=== PATIENT | male | born 1970 | race Caucasian/White ===

== ENCOUNTER 2017-05-06 11:29 | Inpatient (IN) | payer OTHER ==
[~2017-05-06] VITALS: Ht 180.3 cm; Wt 102.1 kg
[2017-05-06] MEDS ORDERED: SODIUM CHLORIDE 0.9% 1000ML 1,000 ML IV STA (11:55)
[2017-05-06] MEDS ORDERED: HYDROMORPHONE 1MG/1ML INJ IV STA (11:55)
[2017-05-06] MEDS ORDERED: ONDANSETRON HCL INJ 2 MG/ML VIAL IV STA (11:55)
[2017-05-06] MEDS ORDERED: DIATRIZOATE MEGL/DIATRIZOA SOD 30 ML BTL PO ONE (12:05)
[2017-05-06 12:39] LABS: BASOPHILS % 0.2 % (0.0-1.0); EOSINOPHILS % 0.3 % (0.0-6.0); HEMATOCRIT 46.6 % (38.2-49.6); HEMOGLOBIN 16.2 g/dL (14.0-18.0); LYMPHOCYTES % 7.5 % (18.0-39.1); MEAN CORPUSCULAR HEMOGLOBIN 32.1 pg (28-32); MEAN CORPUSCULAR HGB CONC 34.8 g/dL (31-35); MEAN CORPUSCULAR VOLUME 92.5 fL (81-99); MONOCYTES % 7.9 % (4.4-11.3); NEUTROPHILS # (AUTO) 10.7 (2.1-6.9); NEUTROPHILS % 83.9 % (38.7-80.0); PLATELET COUNT 166 x10e3/uL (140-360); RED BLOOD COUNT 5.04 x10e6/uL (4.3-5.7); RED CELL DISTRIBUTION WIDTH 12.2 % (11.7-14.4)
[2017-05-06] MEDS ORDERED: HYDROMORPHONE 2MG/ML INJ IV ONE (12:45)
[2017-05-06 12:58] LABS: ALANINE AMINOTRANSFERASE 47 IU/L (0-55); ALBUMIN 4.2 g/dL (3.5-5.0); ALKALINE PHOSPHATASE 83 IU/L (40-150); AMYLASE 34 U/L (25-125); ANION GAP 10.8 mmol/L (8-16); BLOOD UREA NITROGEN 14 mg/dL (7-26); BUN/CREATININE RATIO 12 (6-25); CALCIUM 9.6 mg/dL (8.4-10.2); CARBON DIOXIDE 27 mmol/L (22-29); CHLORIDE 97 mmol/L (98-107); CREATININE, SERUM 1.13 mg/dL (0.72-1.25); EST GLOMERULAR FILTRATION RATE > 60 ML/MIN (60-); GLUCOSE 97 mg/dL (74-118); LIPASE 14 U/L (8-78); POTASSIUM 3.8 mmol/L (3.5-5.1); SODIUM 131 mmol/L (136-145)
[2017-05-06] MEDS ORDERED: METRONIDAZOLE 500MG/NS 100ML 100 ML IV STA (13:19)
[2017-05-06] MEDS ORDERED: LEVOFLOXACIN 750MG/D5W 150ML 150 ML IV STA (13:19)
--- NOTE | 2017-05-06 13:59 | Diagnostic Imaging Report ---
EXAM: CT Abdomen and Pelvis WITH contrast INDICATION: \S\RIGHT AND LEFT LQ ABD PAIN \S\[id number] \S\1310 \S\N COMPARISON: None. TECHNIQUE: Abdomen and pelvis were scanned utilizing a multidetector helical scanner from the lung base to the pubic symphysis after administration of IV contrast. Coronal and sagittal reformations were obtained. Routine protocol was performed. Scan was performed when during portal venous phase. IV CONTRAST: 100 mL of Isovue 370 ORAL CONTRAST: Water COMPLICATIONS: None RADIATION DOSE: Total DLP: 699.9 mGy*cm Estimated effective dose: (DLP x 0.015 x size factor) mSv CTDIvol has been reviewed. It is below the limits set by the Radiation Protocol Committee (RPC). FINDINGS: LINES and TUBES: None. LOWER THORAX: Unremarkable HEPATOBILIARY: No focal hepatic lesions. No biliary ductal dilation. GALLBLADDER: No radio-opaque stones or sludge. No wall thickening. SPLEEN: No splenomegaly. PANCREAS: No focal masses or ductal dilatation. ADRENALS: No adrenal nodules KIDNEYS/URETERS: Kidneys enhance symmetrically. No hydronephrosis. Right inferior pole 0.6 cm hypodensity is too small to characterize but statistically likely a cyst. No stones. GI TRACT: Peridiverticular and pericolonic stranding with regional colonic wall thickening in the distal sigmoid colon. No abscess or free air. No abnormal distention, additional wall thickening, or evidence of bowel obstruction. Small sliding hiatal hernia. Appendix is normal. PELVIC ORGANS/BLADDER: Unremarkable. LYMPH NODES: No lymphadenopathy. VESSELS: Unremarkable. PERITONEUM / RETROPERITONEUM: No free air or fluid. BONES: Unremarkable. SOFT TISSUES: Unremarkable. IMPRESSION: Acute diverticulitis of the sigmoid colon. Signed by: DR. Yg Becker MD on 05/06/2017 1:55 PM
[2017-05-06] MEDS ORDERED: SODIUM CHLORIDE 0.9% 50ML 50 ML ONE (14:02)
[2017-05-06] MEDS ORDERED: IOPAMIDOL 370 MG/ML 200 ML INFUS..BTL INJ ONE (14:02)
[2017-05-06 14:31] LABS: BILIRUBIN,URINE NEGATIVE (NEGATIVE); CLARITY,URINE CLEAR (CLEAR); COLOR,URINE YELLOW (YELLOW); KETONES,URINE NEGATIVE (NEGATIVE); LEUKOCYTE ESTERASE ,URINE NEGATIVE (NEGATIVE); NITRITE,URINE NEGATIVE (NEGATIVE); PROTEIN,URINE DIPSTICK NEGATIVE (NEGATIVE); URINE UROBILINOGEN 0.2 mg/dL (0.2 - 1)
[2017-05-06 14:38] LABS: RBC,URINE 0-5 /HPF (0-5); WBC,URINE (MAN) 0-5 /HPF (0-5)
[2017-05-06] MEDS ORDERED: D5.45%NS/KCL 20MEQ 1,000 ML IV SCH (14:39)
[2017-05-06] MEDS ORDERED: LEVOFLOXACIN 500MG/D5W 100ML IV SCH (14:45)
[2017-05-06] MEDS ORDERED: ONDANSETRON HCL INJ 2 MG/ML VIAL IV PRN (14:45)
[2017-05-06] MEDS ORDERED: HYDROMORPHONE 1MG/1ML INJ IV PRN (14:45)
[2017-05-06] MEDS ORDERED: LEVOFLOXACIN 750MG/D5W 150ML 150 ML IV SCH (15:00)
[2017-05-06] MEDS ORDERED: HYDROMORPHONE 2MG/ML INJ IV PRN (15:15)
[2017-05-06] MEDS ORDERED: METRONIDAZOLE 500MG/NS 100ML 100 ML IV SCH (18:00)
[2017-05-06] MEDS ORDERED: METRONIDAZOLE 500MG/NS 100ML IV SCH (18:00)
== END 2017-05-06 17:41 | disposition home or self-care (01) | DRG 392 ==
LOC: ER 11:29 → ERHOLD 16:25 → MED/SURG2 16:28
DX: K57.32 Diverticulitis of large intestine without perforation or abscess without bleeding (principal)
CPT/HCPCS: 36415; 74177; 80053; 81001; 82150; 83690; 85025; 87086; 99284; J2405; J7030; Q9967